=== PATIENT | female | born 1990 | race African-American/Black ===

== ENCOUNTER 2016-02-24 13:18 | Emergency (ER) | payer SELFPAY ==
[2016-02-24 13:26] VITALS: BMI 23.0
[2016-02-24 13:27] VITALS: BP 126/83; PULSE 118; TEMP 98.7
== END 2016-02-24 15:00 | disposition left against medical advice (07) ==
LOC: ED 13:18
DX: Z04.41 Encounter for examination and observation following alleged adult rape (principal); Z53.21 Procedure and treatment not carried out due to patient leaving prior to being seen by health care provider
CPT/HCPCS: 99281

== ENCOUNTER 2016-02-25 16:57 | Emergency (ER) | payer SELFPAY ==
[2016-02-25 17:30] VITALS: TEMP 98.5; BMI 22.9
[2016-02-25] MEDS ORDERED: AZITHROMYCIN 250 MG TAB PO ONE (19:51)
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
[2016-02-25] MEDS ORDERED: CEFTRIAXONE 250 MG VIAL IM SCH (20:00)
[2016-02-25] MEDS ORDERED: LIDOCAINE 1% 2 ML (METHYLPARABEN FREE) ONE (20:13)
[2016-02-25] MEDS ORDERED: AZITHROMYCIN 250 MG TAB ONE (20:13)
[2016-02-25 20:30] LABS: LEUKOCYTES/URINE NEG (NEGATIVE); NITRITE/URINE NEG (NEGATIVE); URINE OCCULT BLOOD NEG (NEG/TRACE); WBC/URINE 0-2 (0-5)
[2016-02-25 20:54] VITALS: BP 113/64; PULSE 84
[2016-02-27 18:38] LABS: CHLAMY BY NUCLEIC ACID AMP Negative (Negative)
[2016-02-28 09:58] LABS: GC BY NUCLEIC ACID AMP Negative (Negative)
== END 2016-02-25 20:53 | disposition home or self-care (01) ==
LOC: ED 16:57
DX: T76.21XA Adult sexual abuse, suspected, initial encounter (principal); F17.200 Nicotine dependence, unspecified, uncomplicated
CPT/HCPCS: 81001; 81025; 87210; 87220; 87491; 87591; 96372; 99284; J0696; J2001; J3490